=== PATIENT | female | born 1985 | race Caucasian/White ===

== ENCOUNTER 2024-11-25 12:52 | Outpatient (REF) | payer OTHER, SELFPAY ==
[2024-11-25 17:58] LABS: MANUAL DIFF FLAG NO
[2024-11-25 18:14] LABS: Appearance Urine Clear; Glucose Urine UA Negative (Negative); PH 7.0 (5.0-9.0); Specific Gravity - Urine <= 1.005 (1.005-1.025)
[2024-11-25 18:25] LABS: Hematocrit 39.9 % (37.0-47.0); Hemoglobin 13.9 g/dl (12.0-16.0); Imm Gran Abs Auto 0.01 X10*3/uL (0.00-0.03); Imm Gran Pct Auto 0.2 % (0.0-0.4); Lymphocytes Absolute Auto 1.8 X10*3/uL (1.2-4.9); Mean Corpuscular HGB Conc 34.8 g/dl (31.0-35.0); Mean Corpuscular Hemoglobin 31.3 pg (27.0-33.0); Mean Corpuscular Volume 89.9 fL (80.0-98.0); NRBC Abs Auto 0.000 X10*3/uL (0.0-0.012); NRBC Pct Auto 0.0 /100WBC (0.0-0.2); Platelet Count 300 X10*3/uL (160-400); Red Blood Count 4.44 X10*6/uL (4.20-5.50); White Blood Count 6.1 X10*3/uL (4.8-10.8)
[2024-11-25 18:42] LABS: Alanine Aminotransferase 19 U/L (0-31); Albumin Level 4.7 g/dL (3.5-5.0); Alkaline Phosphatase 42 U/L (39-117); Anion Gap 11 (12-20); Aspartate Amino Transferase 31 U/L (5-31); Blood Urea Nitrogen 8 mg/dL (9-16); Calcium 9.1 mg/dL (8.4-10.2); Carbon Dioxide 26 mmol/L (22-29); Chloride 106 mmol/L (96-108); Cholesterol 148 mg/dL (<200); Estimated Glomerular Filt Rate > 60; HDL Cholesterol 50 mg/dL (>40); Potassium 3.7 mmol/L (3.3-5.1); Sodium 139 mmol/L (135-145); Total Protein 6.9 g/dL (6.5-8.0); Triglycerides 66 mg/dL (<150)
[2024-11-25 19:01] LABS: Folate 6.4 ng/mL (> or = 4.0); Vitamin B12 416 pg/mL (200-900)
[2024-11-26 08:38] LABS: HBS Num1 604.42 mIU/mL (0-7.99); HBsAGNum1 0.31 S/CO (0.00-0.99); HIV Num 1 0.06 S/CO (0.00-0.99); Hepatitis B Surface Antigen Negative (Negative); ~HepC Num1 0.14 S/CO (0.00-0.79); ~Hepatitis B Surface Antibody REACTIVE (Nonreactive); ~Hepatitis C Antibody Nonreactive (Nonreactive)
[2024-11-30 12:44] LABS: VITAMIN D (1,25 OH) D3 43 pg/mL; Vit D (1,25-Dihydroxy) Total 43 pg/mL (18-72); Vitamin D (1,25 OH) D2 <8 pg/mL
== END 2024-11-25 12:53 | disposition home or self-care (01) ==
LOC: HO.HKASLDS 12:52
PROVIDERS: PCP Student in an Organized Health Care Education/Training Program; Visit Provider Student in an Organized Health Care Education/Training Program
DX: Z13.9 Encounter for screening, unspecified (principal); F41.9 Anxiety disorder, unspecified; F32.A Depression, unspecified; R03.0 Elevated blood-pressure reading, without diagnosis of hypertension; Z68.27 Body mass index [BMI] 27.0-27.9, adult
CPT/HCPCS: 36415; 80053; 80061; 81003; 82607; 82652; 82746; 83036; 85025; 86706; 86803; 87340; 87389

== ENCOUNTER 2024-11-25 12:52 | Outpatient (AMB) | payer OTHER, SELFPAY ==
--- NOTE | 2024-11-25 12:57 | A.OFFPC_ITS ---
Vital Signs 11/25/24 13:01 Height 5 ft 4.17 in Weight 162 lb BMI 27.7 BP 140/80 H Blood Pressure Location Rt brachial Position Sitting Respiration 16 Pulse 89 Pulse Source Pulse Oximeter Temp 97.8 F Temp Source Oral Pulse Oximetry (%) 98 Oxygen Delivery Method Room Air Intake Visit Reasons: establish care Supervisory Training Specialist Required: No Accompanied by: Self / Same As Patient Allergies No Known Allergies (No Known Allergies*) Allergy (Verified 11/25/24 12:58) Tobacco use date assessed: 11/25/24 Dental Screening Dental Screen Date: 11/25/24 Did you have a dental visit in the last 12 months?: Yes Did you have a dental problem in the last 6 months where you did not have access to dental care?: No Was dental information given to patient?: Patient has dentist HPI HPI Comments History of Present Illness Details History of Present Illness The patient is a 39-year-old female presenting for reestablishment of primary care and management of anxiety and depression. Generalized Anxiety Disorder: - The patient has experienced anxiety si nce her teenage years, with symptoms persisting despite intermittent therapy. - She reports feeling irritable and cons tantly worried about uncontrollable matters, impacting her daily life. - She has not experienced suicidal or ho micidal ideations. - She discontinued fluoxetine treatment prior to the COVID-19 pandemic due to changes in insurance and provider availability. Major Depressive Disorder: - The patient has a history of depressio n since her teenage years, managed initially with therapy and later with medication. - She was prescribed fluoxetine 15 mg, w hich she found beneficial until discontinuation. - She reports daily life being difficult , with persistent feelings of sadness and irritability. Review of Systems - Psychiatric: Reports anxiety and depre ssion. Denies suicidal or homicidal ideations. - Neurological: Denies headaches or dizz iness. - Cardiovascular: Denies chest pain or p alpitations. - Respiratory: Denies dyspnea or cough. - Gastrointestinal: Denies abdominal diane n or changes in bowel habits. - Genitourinary: Reports regular menstru ation, denies dysmenorrhea. 10-point ROS reviewed and negative excep t as noted in HPI Past Medical History - Generalized Anxiety Disorder, managed with fluoxetine in the past. - Major Depressive Disorder, managed wit h therapy and fluoxetine. Health Maintenance - Blood pressure monitoring due to eleva keely reading during the visit. - Comprehensive lab work ordered includi ng CBC, CMP, thyroid panel, lipid panel, and vitamin levels. - Behavioral health referral for ongoing mental health support. Physical Exam General: Well-appearing, in no acute distress. Vital signs: Blood pressure is a little elevated today. HEENT: Normocephalic, atraumatic. PERRLA, EOMI. Oropharynx clear, mucous membranes moist. TMs intact bilaterally. Neck: Supple, no lymphadenopathy, no thyromegaly, no JVD or carotid bruits. Cardiovascular: RRR, normal S1/S2, no murmurs, rubs, or gallops. Peripheral pulses 2+ and symmetric. No edema. Respiratory: Lungs clear to auscultation bilaterally, no wheezes, rales, or rhonchi. Normal effort. Abdomen: Soft, non-tender, non-distended. Normoactive bowel sounds. No hepatosplenomegaly, no masses. MSK: Full range of motion, no joint swelling or deformity. Normal gait. Skin: Warm, dry, intact. No rashes, lesions, or pallor. Neuro: Alert and oriented x3. Cranial nerves II-XII intact. Strength 5/5 throughout. Sensation intact. Reflexes 2+ symmetric. Normal coordination and gait. Psych: Appropriate mood and affect. Reports anxiety and depression, but no suicidal or homicidal ideations. Normal judgment and insight. Plan 1. Generalized Anxiety Disorder - Initiate fluoxetine 20 mg daily, with follow-up in two weeks to assess response and tolerability. - Behavioral health referral for additio nal support and therapy options. 2. Major Depressive Disorder - Restart fluoxetine 20 mg daily, with f ollow-up in two weeks to monitor effectiveness and side effects. - Comprehensive lab work to rule out any underlying conditions contributing to symptoms. Discussion Notes I discussed with the patient the plan to restart fluoxetine at 20 mg daily, emphasizing the importance of follow-up in two weeks to evaluate the medication's effectiveness and any side effects. We also talked about the need for comprehensive lab work to rule out any underlying conditions that might be contributing to her symptoms. I recommended a behavioral health referral to provide additional support and therapy options. The patient was informed about the expected time for fluoxetine to take effect and the importance of adherence to the medication regimen. Patient was informed and verbally consented to the use of an ambient scribe for clinic note documentation during this visit. Patient Instructions - Take fluoxetine 20 mg daily as prescri bed. - Schedule a follow-up appointment in tw o weeks to discuss how you are feeling. - Complete the lab work as ordered to ch piotr your overall health. - Expect a call from behavioral health f or additional support and therapy options. Total time spent caring for the patient today was 30 minutes. This includes time spent before the visit reviewing the chart, time spent documenting, and time spent performing a medically necessary evaluation, counseling on diagnoses, care coordination, ordering appropriate tests, ordering appropriate medications. [facility] Family History (Updated 11/25/24 @ 12:59 by Etienne Fontenot MA) Father No problems noted. Mother No problems noted. Social History (Updated 11/25/24 @ 13:04 by Eteinne Fontenot MA) Housing: House Alcohol intake: current Alcohol intake frequency: does not drink Patient Tobacco Use Status: Never used Tobacco service: No Current occupational status: employed Cognitive needs: No Hearing needs: No Vision needs: Yes (rx glasses) Questionnaire PHQ-9 Over the last 2 weeks, how often have you been bothered by any of the following problems? 1. Little interest or pleasure in doing things: more than half the days 2. Feeling down, depressed, or hopeless: more than half the days 3. Trouble falling or staying asleep, or sleeping too much: more than half the days 4. Feeling tired or having little energy: more than half the days 5. Poor appetite or overeating: more than half the days 6. Feeling bad about yourself - or that you are a failure or have let yourself or your family down: more than half the days 7. Trouble concentrating on things, such as reading the newspaper or watching television: more than half the days 8. Moving or speaking so slowly that other people could have noticed. Or the opposite - being so fidgety or restless that you have been moving around a lot more than usual: not at all 9. Thoughts that you would be better off or of hurting yourself in some way: several days Total score: 15 Source: Developed by Drs. Jonny Truong, Jennifer Pappas, Newton Lugo and colleagues, with an educational riley from [employer]. Thrive Questionnaire Date Thrive assessed: 11/25/24 I am a: Patient What is your living situation today?: I have a steady place to live Within the past 12 months, did the food you bought not last and you didn't have the money to get more?: Never true Within the past 12 months, did you worry whether your food would run out before you got money to buy more?: Never true Do you have trouble paying for medicines?: No Do you have trouble getting transportation to medical appointments?: No Do you have trouble paying your heating and electricity bill?: No Do you have trouble taking care of your child, family member or friend?: No Are you currently unemployed and looking for a job?: No Are you interested in more education?: No Please select the resources that you would like help with: None Currently or been in a relationship where the following occur: No concerns reported THRIVE Score: 0 AUDIT C Alcohol Use Questionnaire (AUDIT-C) 1. How often do you have a drink containing alcohol?: Never Total Score: 0 SAMI-7 AMB Questionnaire SAMI-7 Date SAMI - 7 assessed: 11/25/24 Feeling nervous, anxious, or on edge: 2 = More than half the days Not being able to stop or control worryin = More than half the days Worrying too much about different things: 2 = More than half the days Trouble relaxin = More than half the days Being so restless that it is hard to sit still: 1 = Several days Becoming easily annoyed or irritable: 2 = More than half the days Feeling afraid as if something awful might happen: 1 = Several days Total SAMI-7 score (0-4 normal; 5-9 mild; 10-14 moderate; 15-21 severe): 12 Source: Developed by Drs. Jonny Truong, Jennifer Pappas, Newton Lugo and colleagues, with an educational riley from [employer]. Physical exam (Primary Care) Vital Signs: Last Vital Signs Temp 97.8 F 11/25/24 13:01 Pulse 89 11/25/24 13:01 Resp 16 11/25/24 13:01 BP 140/80 H 11/25/24 13:01 Pulse Ox 98 11/25/24 13:01 Oxygen Delivery Method Room Air 11/25/24 13:01 BMI result Body Mass Index 27.7 Tobacco/Smoking Status: Tobacco use Status Tobacco use date assessed 11/25/24 11/25/24 13:06 Patient Tobacco Use Status Never used Tobacco 11/25/24 13:06 PHQ-9: PHQ-9 Score PHQ-9: Total score 15 11/25/24 13:06 Thrive Assessment: Date of Thrive Assessment Date Thrive assessed 11/25/24 11/25/24 13:06 Currently or been in a relationship where the following occur: No concerns reported Coding Level of Care Code New Pt Level 4 (43963) Diagnoses Anxiety F41.9 Depression F32.A Overweight (BMI 25.0-29.9) E66.3 Elevated blood pressure reading R03.0 Assessment & Plan Assessment & Plan (1) Anxiety: Code(s): F41.9 - Anxiety disorder, unspecified (2) Depression: Code(s): F32.A - Depression, unspecified (3) Overweight (BMI 25.0-29.9): Code(s): E66.3 - Overweight (4) Elevated blood pressure reading: Code(s): R03.0 - Elevated blood-pressure reading, without diagnosis of hypertension Plan Orders: Orders Comprehensive Met. Panel Today Z13.9 - Encounter for screening, unspecified HIV Ab/Ag Today Z13.9 - Encounter for screening, unspecified Lipid Panel Today Z13.9 - Encounter for screening, unspecified UA CC w/rflx Micro + Cult Today Z13.9 - Encounter for screening, unspecified Complete Blood Count Auto Diff Today Z13.9 - Encounter for screening, unspecified Hemoglobin A1c Today Z13.9 - Encounter for screening, unspecified Hepatitis B Surface Antibody Today Z13.9 - Encounter for screening, unspecified Hepatitis B Surface Antigen Today Z13.9 - Encounter for screening, unspecified Hepatitis C Antibody Today Z13.9 - Encounter for screening, unspecified Vitamin B12 and Folate Today Z13.9 - Encounter for screening, unspecified Vitamin D 1,25 dihydroxy Today Z13.9 - Encounter for screening, unspecified Referrals Behavioral Health Referral F32.A - Depression, unspecified, F41.9 - Anxiety disorder, unspecified Medications: New fluoxetine 20 mg (2 x 10 mg) PO DAILY 30 tabs 0RF F41.8 - Other specified an xiety disorders
[2024-11-25 13:01] VITALS: BP 140/80; PULSE 89; RESP 16; TEMP 36.6; O2SAT 98; BMI 27.7
--- OUTSIDE RECORDS SUMMARY | 2024-11-25 15:46 | XMS_ITS | Encounter Summary ---
Author Organization [facility] Address [address] [place] [phone] Phone Care Team Providers Care Commercial Illustrator Name Role Phone Unavailable Primary Care Provider Unavailabl e Encounter Details Date Type Department Care Team (Late st Contact Info) Description 10/05/2016 Conversion Encounter [facility] - [address] [address] Social History Tobacco Use Types Packs/Day Years Used Date Smoking Tobacco: Never Assessed Comments Unknown Sex and Gender Information Value Date Recorded Sex Assigned at Not on file Legal Sex Female 4:14 PM EDT Gender Identity Not on file Sexual Orientation Not on file documented as of this encounter Plan of Treatment Not on file documented as of this encounter Visit Diagnoses Not on filedocumented in this encounter
--- OUTSIDE RECORDS SUMMARY | 2024-11-25 15:46 | XMS_ITS | Clinical Summary ---
Author Organization [facility] Address [address] [place] [phone] Phone Care Team Providers Care Cloth Desizing Range Tender Name Role Phone Unavailable Primary Care Provider Unavailabl e Immunizations Immunization Administration Dates Next Due DTP 06/18/1998, 8,01/18/1997,11/18,09/19/1991 Hep B, ped/adol 10/19/1998,05/04/1998,03/23/1998 Hib (HbOC) 06/18/1998 IPV 06/18/1998, 7,11/18/1996,09/18 MMR 03/23/1998,03/21/1998 Meningococcal Conj (Menactra) MCV4P 10/11/2004 Td (adult) (Tenivac), 5 Lf t etanus toxoid, PF, adsorbed 03/23/1998 Family History Relation Name Status Comments Brother 1 Alive Brother: Alive and well, Alive and well Brother 2 Alive Brother: Alive and well, Alive and well Father Alive Father: Alive a nd well Maternal Grandmother Materna l grandmother: Diabetes mellitus, Mother Alive Mother: Alive a nd well Social History Tobacco Use Types Packs/Day Years Used Date Smoking Tobacco: Never Assessed Comments Unknown Sex and Gender Information Value Date Recorded Sex Assigned at Not on file Legal Sex Female 4:14 PM EDT Gender Identity Not on file Sexual Orientation Not on file Plan of Treatment Health Maintenance Due Date Last Done Comments Varicella Vaccines (1 of 2 - 13+ 2-dose series) 08/16/1999 DTaP,Tdap,and Td Vaccines (5 - Tdap) 06/18/2008 06/18/1998, 03/23/1998, 03/21/1997, Additional history exists HPV Vaccines (1 - 3-dose SCDM series) 2013 Influenza Vaccines (#1) 2024 COVID-19 Vaccine (1 - 2025-26 season) 2024 MMR Vaccines Completed 03/23/1998, 03/21/1998 HIB Vaccines Aged Out 06/18/1998 No longer eligi ble based on patient's age to complete this topic IPV Vaccines Completed 06/18/1998, 12/22, 11/18/1996, Additional history exists Hepatitis B Vaccines Completed 10/19/1998, 05/04/1998, 03/23/1998 Meningococcal Vaccine Completed 10/11/2004 Hepatitis A Vaccines Aged Out No long er eligible based on patient's age to complete this topic Men B Vaccine Aged Out No longer elig ible based on patient's age to complete this topic Pneumococcal Vaccine Aged Out No long er eligible based on patient's age to complete this topic
== END 2024-11-25 13:23 | disposition home or self-care (01) ==
LOC: HO.HMCFMS 12:53
PROVIDERS: PCP Student in an Organized Health Care Education/Training Program; Visit Provider Student in an Organized Health Care Education/Training Program
DX: F41.9 Anxiety disorder, unspecified (principal); F32.A Depression, unspecified; E66.3 Overweight; R03.0 Elevated blood-pressure reading, without diagnosis of hypertension

== ENCOUNTER 2024-12-10 13:15 | Outpatient (AMB) | payer OTHER, SELFPAY ==
--- NOTE | 2024-12-10 13:12 | A.OFFPC_ITS ---
Vital Signs 12/10/24 13:13 Height 5 ft 4.17 in Weight 159 lb 4 oz BMI 27.2 BP 156/86 H Blood Pressure Location Lt brachial Position Sitting Respiration 16 Pulse 72 Pulse Source Pulse Oximeter Temp 98.2 F Temp Source Oral Pulse Oximetry (%) 99 Oxygen Delivery Method Room Air Intake Visit Reasons: 2 week follow up [employer] Developer Required: No Accompanied by: Self / Same As Patient Allergies No Known Allergies (No Known Allergies*) Allergy (Verified 12/10/24 13:13) Tobacco use date assessed: 12/10/24 Dental Screening Dental Screen Date: 12/10/24 Did you have a dental visit in the last 12 months?: Yes Did you have a dental problem in the last 6 months where you did not have access to dental care?: No Was dental information given to patient?: Patient has dentist HPI HPI Comments History of Present Illness Details Consent Patient was informed and verbally consented to the use of an ambient scribe for clinic note documentation during this visit. History of Present Illness The patient is a 39-year-old female presenting for follow-up on Major Depressive Disorder and labs results from initial encounter Major Depressive Disorder: The patient started fluoxetine approximately two weeks ago and reports not yet experiencing significant improvement in symptoms, which is expected as the medication typically takes four to six weeks for full effect. She has also begun therapy sessions, having met with a therapist last week and planning another session tomorrow, indicating a proactive approach to managing her condition. Routine Health Maintenance: The patient's recent laboratory results indicate normal white blood cell count, red blood cell count, hemoglobin, hematocrit, and platelet levels, with no signs of anemia or infection. Electrolyte levels, including sodium and potassium, are within normal ranges, and renal function is reported as excellent. Additional tests show normal hemoglobin A1c, liver function, triglycerides, cholesterol levels, vitamin B12, vitamin D, and folate, with negative results for Hepatitis B, Hepatitis C, and HIV. Medications: - Fluoxetine: For management of Major De pressive Disorder Social History: - Mental Health: Engaged in therapy sess ions for mental health support Diagnostic Results: - Labs: Normal white blood cell count, r ed blood cell count, hemoglobin, hematocrit, and platelet levels; normal sodium and potassium levels; excellent renal function - Tests: Normal hemoglobin A1c, liver fu nction, triglycerides, cholesterol levels, vitamin B12, vitamin D, and folate; negative for Hepatitis B, Hepatitis C, and HIV Review of Systems 10-point ROS reviewed and negative excep t as noted in HPI Past Medical History Health Maintenance - Routine blood work and screenings cond ucted with normal results Physical Exam General: Well-appearing, in no acute distress. Vital signs: Within normal limits. HEENT: Normocephalic, atraumatic. PERRLA, EOMI. Conjunctiva clear, sclera anicteric. Oropharynx clear, mucous membranes moist. TMs intact bilaterally. Neck: Supple, no lymphadenopathy, no thyromegaly, no JVD or carotid bruits. Cardiovascular: RRR, normal S1/S2, no murmurs, rubs, or gallops. Peripheral pulses 2+ and symmetric. No edema. Respiratory: Lungs clear to auscultation bilaterally, no wheezes, rales, or rhonchi. Normal effort. Abdomen: Soft, non-tender, non-distended. Normoactive bowel sounds. No h epatosplenomegaly, no masses. MSK: Full range of motion, no joint swelling or deformity. Normal gait. Skin: Warm, dry, intact. No rashes, lesions, or pallor. Neuro: Alert and oriented x3. Cranial nerves II-XII intact. Strength 5/5 throughout. Sensation intact. Reflexes 2+ symmetric. Normal coordination and gait. Psych: Appropriate mood and affect. Normal judgment and insight. Patient is currently on fluoxetine and has started therapy sessions. Mood is improving, and patient reports feeling good overall. Plan 1. Major Depressive Disorder - Continue fluoxetine and monitor for im provement over the next 4-6 weeks - Continue therapy sessions to support [facility] 2. Routine Health Maintenance - Review lab results and maintain [facility] t health status - Follow up in one month for reassessmen t Discussion Notes I discussed with the patient the expected timeline for fluoxetine to take full effect, emphasizing the importance of continuing the medication and therapy sess ions. We reviewed her lab results, which were all within normal limits, and agreed on a follow-up in one month to reassess her condition. Patient Instructions - Continue taking fluoxetine as prescrib ed - Attend scheduled therapy sessions - Review lab results on the patient port al - Follow up in one month for reassessmen t Medical Decision Making The decision to continue fluoxetine was based on the typical timeline for antidepressants to show efficacy, with the expectation of improvement in symptoms over the next few weeks. Therapy sessions are recommended to provide additional support for managing Major Depressive Disorder. Routine lab work confirmed the patient's overall good health, allowing for a focus on mental health management. Total time spent caring for the patient today was 30 minutes. This includes time spent before the visit reviewing the chart, time spent documenting, and time spent reviewing laboratory results, diagnostic imaging, medications, performing a medically necessary evaluation, counseling on diagnoses, care coordination, ordering appropriate tests, ordering appropriate medications. [facility] Family History Father No problems noted. Mother No problems noted. Social History Housing: House Alcohol intake: current Alcohol intake frequency: does not drink Patient Tobacco Use Status: Never used Tobacco service: No Current occupational status: employed Cognitive needs: No Hearing needs: No Vision needs: Yes (rx glasses) Questionnaire Thrive Questionnaire Date Thrive assessed: 12/10/24 I am a: Patient What is your living situation today?: I have a steady place to live Within the past 12 months, did the food you bought not last and you didn't have the money to get more?: Never true Within the past 12 months, did you worry whether your food would run out before you got money to buy more?: Never true Do you have trouble paying for medicines?: No Do you have trouble getting transportation to medical appointments?: No Do you have trouble paying your heating and electricity bill?: No Do you have trouble taking care of your child, family member or friend?: No Do you have trouble with day-to-day activities such as bathing, preparing meals, shopping, managing finances, etc.?: No Are you currently unemployed and looking for a job?: No Are you interested in more education?: No Please select the resources that you would like help with: None Currently or been in a relationship where the following occur: No concerns reported THRIVE Score: 0 AUDIT C Alcohol Use Questionnaire (AUDIT-C) 3. How often do you have six or more drinks on one occasion?: Never Total Score: 0 SAMI-7 AMB Questionnaire SAMI-7 Date SAMI - 7 assessed: 12/10/24 Source: Developed by Drs. Jonny Truong, Jennifer B.Newton Morales and colleagues, with an educational riley from [employer]. Physical exam (Primary Care) Vital Signs: Last Vital Signs Temp 98.2 F 12/10/24 13:13 Pulse 72 12/10/24 13:13 Resp 16 12/10/24 13:13 BP 156/86 H 12/10/24 13:13 Pulse Ox 99 12/10/24 13:13 Oxygen Delivery Method Room Air 12/10/24 13:13 BMI result Body Mass Index 27.2 Tobacco/Smoking Status: Tobacco use Status Tobacco use date assessed 12/10/24 12/10/24 13:18 Patient Tobacco Use Status Never used Tobacco 12/10/24 13:18 Thrive Assessment: Date of Thrive Assessment Date Thrive assessed 12/10/24 12/10/24 13:18 Currently or been in a relationship where the following occur: No concerns reported Coding Level of Care Code Est Pt Level 3 (34863) Diagnoses Depression F32.A Elevated blood pressure reading R03.0 Anxiety F41.9 Overweight with body mass index (BMI) 25.0-29.9 E66.3 Assessment & Plan Assessment & Plan (1) Depression: Code(s): F32.A - Depression, unspecified (2) Elevated blood pressure reading: Code(s): R03.0 - Elevated blood-pressure reading, without diagnosis of hypertension (3) Anxiety: Code(s): F41.9 - Anxiety disorder, unspecified (4) Overweight with body mass index (BMI) 25.0-29.9: Code(s): E66.3 - Overweight Plan Medications: Refilled fluoxetine 20 mg (2 x 10 mg) PO DAILY 180 tabs 0RF F41.8 - Other specified anxiety disorders
[2024-12-10 13:13] VITALS: BP 156/86; PULSE 72; RESP 16; TEMP 36.8; O2SAT 99; BMI 27.2
--- OUTSIDE RECORDS SUMMARY | 2024-12-10 18:41 | XMS_ITS | Encounter Summary ---
Author Organization [facility] Address [address] [place] [phone] Phone Care Team Providers Care Receiver Dispatcher Name Role Phone Unavailable Primary Care Provider Unavailabl e Encounter Details Date Type Department Care Team (Late st Contact Info) Description 10/05/2016 Conversion Encounter [facility] - [address] [address] Social History Tobacco Use Types Packs/Day Years [...]
--- OUTSIDE RECORDS SUMMARY | 2024-12-10 18:42 | XMS_ITS | Clinical Summary ---
Author Organization [facility] Address [address] [place] [phone] Phone Care Team Providers Care Quarry Extraction Worker Name Role Phone Unavailable Primary Care Provider [...]
== END 2024-12-10 13:48 | disposition home or self-care (01) ==
LOC: HO.HMCFMS 13:16
PROVIDERS: PCP Student in an Organized Health Care Education/Training Program; Visit Provider Student in an Organized Health Care Education/Training Program
DX: F32.A Depression, unspecified (principal); R03.0 Elevated blood-pressure reading, without diagnosis of hypertension; F41.9 Anxiety disorder, unspecified; E66.3 Overweight

== ENCOUNTER 2025-01-21 09:49 | Outpatient (AMB) | payer OTHER, SELFPAY ==
--- NOTE | 2025-01-21 09:55 | MHC.PC.OV ---
Vital Signs 01/21/25 09:59 Height 5 ft 4.17 in Weight 155 lb 4 oz BMI 26.5 BP 128/76 Blood Pressure Location Lt brachial Position Sitting Respiration 18 Pulse 75 Pulse Source Pulse Oximeter Temp 98 F Temp Source Oral Pulse Oximetry (%) 99 Oxygen Delivery Method Room Air Intake Visit Reasons: 1 mo f/u Intake Note: follow up Heel Padder Required: No Accompanied by: Self / Same As Patient Allergies No Known Allergies (No Known Allergies*) Allergy (Verified 01/21/25 09:58) Medication List - Last Reconciled 01/21/25 by Carlos Abreu MD fluoxetine 40 mg PO DAILY Tobacco use date assessed: 12/10/24 Dental Screening Dental Screen Date: 12/10/24 HPI HPI Comments History of Present Illness Details History of Present Illness The patient is a 39-year-old individual presenting for a follow-up visit for medication management of a mood disorder. Mood Disorder: The patient has been on fluoxetine for over a month and reports that the medication is working, noting a more positive outlook. However, the patient feels that the full therapeutic effect has not been reached and requested to increase the dose. Mental Health Counseling: The patient has a history of trying therapy several times and recently attended two virtual sessions with a therapist named Tanika. The patient found it difficult to find time for weekly sessions and felt the therapist was not a good fit, citing the therapist's anti-medication stance and focus on breath work. The patient remains open to counseling but desires a different provider. Medications: - Fluoxetine for mood disorder, current dose not specified, but has been on it for over a month. 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 - Attended two therapy sessions via Zoom. Diagnostic Results: - All recent laboratory results are within normal limits. - CBC: White blood cells, red blood cells, hemoglobin, and platelets are normal. - Comprehensive Metabolic Panel: Sodium, potassium, kidney function, and liver function are normal. - Glucose: Within normal range; patient is not prediabetic or diabetic. - Lipid Panel: Triglycerides, total cholesterol, LDL, and HDL are within great ranges. - Vitamins: Vitamin B12, Vitamin D, and folate are good. - Urinalysis: Results are normal. - Infectious Disease Screen: Negative for Hepatitis B, Hepatitis C, and HIV. Past Medical History - History of mood disorder currently treated with fluoxetine. - The patient has attempted therapy several times in the past. Health Maintenance - Comprehensive lab work including CBC, CMP, lipids, vitamins, and infectious disease screening was recently completed and reviewed; all results were within normal limits. - Discussed importance of finding a suitable therapist for mental health counseling and provided a new referral. [facility] Family History Father No problems noted. Mother No problems noted. Social History (Updated 01/21/25 @ 09:59 by Yuan Hamm CMA) Housing: House Alcohol intake: current Alcohol intake frequency: does not drink Patient Tobacco Use Status: Never used Tobacco e-Cigarette/Vaping Use: Never Used service: No Current occupational status: employed Cognitive needs: No Hearing needs: No Vision needs: Yes (rx glasses) Questionnaire PHQ-9 Over the last 2 weeks, how often have you been bothered by any of the following problems? 1. Little interest or pleasure in doing things: more than half the days 2. Feeling down, depressed, or hopeless: more than half the days 3. Trouble falling or staying asleep, or sleeping too much: more than half the days 4. Feeling tired or having little energy: more than half the days 5. Poor appetite or overeating: more than half the days 6. Feeling bad about yourself - or that you are a failure or have let yourself or your family down: more than half the days 7. Trouble concentrating on things, such as reading the newspaper or watching television: more than half the days 8. Moving or speaking so slowly that other people could have noticed. Or the opposite - being so fidgety or restless that you have been moving around a lot more than usual: not at all 9. Thoughts that you would be better off or of hurting yourself in some way: several days Total score: 15 Depression Screening Interpretation: Positive Depression Screening Done: Yes 30376 - PHQ-9 Billing: Yes Source: Developed by Drs. Jonny Truong, Jennifer Pappas, Newton Lugo and colleagues, with an educational riley from [employer]. Thrive Questionnaire Date Thrive assessed: 01/21/25 I am a: Patient What is your living situation today?: I have a steady place to live Within the past 12 months, did the food you bought not last and you didn't have the money to get more?: Never true Within the past 12 months, did you worry whether your food would run out before you got money to buy more?: Never true Do you have trouble paying for medicines?: No Do you have trouble getting transportation to medical appointments?: No Do you have trouble paying your heating and electricity bill?: No Do you have trouble taking care of your child, family member or friend?: No Do you have trouble with day-to-day activities such as bathing, preparing meals, shopping, managing finances, etc.?: No Are you currently unemployed and looking for a job?: No Are you interested in more education?: No Please select the resources that you would like help with: None Currently or been in a relationship where the following occur: No concerns reported THRIVE Score: 0 AUDIT C Alcohol Use Questionnaire (AUDIT-C) 3. How often do you have six or more drinks on one occasion?: Never Total Score: 0 SAMI-7 AMB Questionnaire SAMI-7 Date SAMI - 7 assessed: 01/21/25 Source: Developed by Drs. Jonny Truong, Jennifer Pappas, Newton Lugo and colleagues, with an educational riley from [employer]. SAMI-7 Assessment Billing SAMI-7 Assessment Tool: SAMI-7 Assessment 27648 Review of Systems Narrative Review of Systems - Psychiatric: Reports improved and more positive mood since starting fluoxetine but feels symptoms are not fully resolved. - Denies significant trauma. - Constitutional: Reports feeling well. 10-point ROS reviewed and negative except as noted in HPI Physical exam (Primary Care) Vital Signs: Last Vital Signs Temp 98 F 01/21/25 09:59 Pulse 75 01/21/25 09:59 Resp 18 01/21/25 09:59 BP 128/76 01/21/25 09:59 Pulse Ox 99 01/21/25 09:59 Oxygen Delivery Method Room Air 01/21/25 09:59 BMI result Body Mass Index 26.5 Tobacco/Smoking Status: Tobacco use Status Tobacco use date assessed 12/10/24 01/21/25 10:03 Patient Tobacco Use Status Never used Tobacco 01/21/25 10:03 e-Cigarette/Vaping Use Never Used 01/21/25 10:03 PHQ-9: PHQ-9 Score PHQ-9: Total score 15 01/21/25 10:03 Depression Screening Interpretation: Positive Thrive Assessment: Date of Thrive Assessment Date Thrive assessed 01/21/25 01/21/25 10:03 Currently or been in a relationship where the following occur: No concerns reported Narrative Physical Exam General: Well-appearing, in no acute distress. Vital signs: Within normal limits. HEENT: Normocephalic, atraumatic. PERRLA, EOMI. Conjunctiva clear, sclera anicteric. Oropharynx clear, mucous membranes moist. TMs intact bilaterally. Neck: Supple, no lymphadenopathy, no thyromegaly, no JVD or carotid bruits. Cardiovascular: RRR, normal S1/S2, no murmurs, rubs, or gallops. Peripheral pulses 2+ and symmetric. No edema. Respiratory: Lungs clear to auscultation bilaterally, no wheezes, rales, or rhonchi. Normal effort. Abdomen: Soft, non-tender, non-distended. Normoactive bowel sounds. No hepatosplenomegaly, no masses. MSK: Full range of motion, no joint swelling or deformity. Normal gait. Skin: Warm, dry, intact. No rashes, lesions, or pallor. Neuro: Alert and oriented x3. Cranial nerves II-XII intact. Strength 5/5 throughout. Sensation intact. Reflexes 2+ symmetric. Normal coordination and gait. Psych: Appropriate mood and affect. Normal judgment and insight. Patient reports improvement with fluoxetine but desires dose increase for further improvement. Engaged in therapy sessions via Zoom, exploring different therapeutic options. Coding Level of Care Code Est Pt Level 3 (73667) Diagnoses Anxiety F41.9 Depression F32.A Additional Codes SAMI-7 Assessment Billing - SAMI-7 Assessment Tool: SAMI-7 Assessment 76329 ([id number]) PHQ-9 - 36422 - PHQ-9 Billing: Yes ([id number]) Assessment & Plan Assessment & Plan (1) Anxiety: Code(s): F41.9 - Anxiety disorder, unspecified (2) Depression: Code(s): F32.A - Depression, unspecified Plan Consent Patient was informed and verbally consented to the use of an ambient scribe for clinic note documentation during this visit. Plan 1. Mood Disorder - The patient reports a partial response to fluoxetine and wishes to increase the dose for better symptom control. - Plan is to increase the fluoxetine dose to 40 mg daily. - Follow-up scheduled in one month to assess the patient's response to the dose titration. 2. Mental Health Counseling - The patient expressed dissatisfaction with the previous therapist due to scheduling challenges and a perceived anti-medication bias. - A new referral was provided for [facility], which offers virtual therapy sessions. - The patient was encouraged to contact the new practice when ready. Discussion Notes I reviewed the patient's recent lab work, and all results were within normal limits. We discussed the patient's treatment with fluoxetine; the patient reports it is helping but feels there is room for improvement and requested a dose increase. I explained that fine-tuning the dose of psychiatric medication is a common process to find what works best for the individual. We agreed to increase the fluoxetine to 40 mg daily with a plan to follow up in one month. We also discussed psychotherapy, and the patient felt the last therapist was not a good fit. I provided a referral to [facility], which offers virtual sessions, as an alternative. Patient Instructions - Increase your dose of fluoxetine to 40 mg once a day. - Please schedule a follow-up appointment in one month to review how you are feeling on the new dose. - You were given the phone number for [facility] for therapy. - You can call them to set up an appointment when you feel ready. Medical Decision Making This 39-year-old individual presents for a follow-up of a mood disorder. The patient reports a partial positive response to fluoxetine but endorses residual symptoms, leading to a request for a dose increase. Given the good tolerability and incomplete efficacy, a dose titration is clinically indicated to optimize treatment. The decision was made to increase fluoxetine to 40 mg daily, a standard next step, with a plan to re-evaluate in one month. Additionally, the patient's challenges with finding a suitable therapist were addressed by providing a new referral to a practice offering telehealth, which may better fit the patient's needs and preferences after a poor experience with a previous provider. Recent comprehensive labs were reviewed and found to be unremarkable, confirming no metabolic or other organic contributors to the patient's presentation. Total Time Statement 20 min Total time spent caring for the patient today includes pre-visit chart review, documentation, review of laboratory and diagnostic imaging results, medication reconciliation, medically necessary evaluation, counseling on diagnoses, care coordination, ordering appropriate tests and medications, review of tests performed by other providers, reporting test results to the patient, and communication with other healthcare providers. Medications: New fluoxetine 40 mg PO DAILY 30 caps 0RF Discontinued fluoxetine Discontinued Reason: Doctor's Order 20 mg (2 x 10 mg) PO DAILY 180 tabs 0RF F41.8 - Other specified anxiety disorders
[2025-01-21 09:59] VITALS: BP 128/76; PULSE 75; RESP 18; TEMP 36.6; O2SAT 99; BMI 26.5
--- OUTSIDE RECORDS SUMMARY | 2025-01-21 11:01 | XMS_ITS | Encounter Summary ---
Author Organization [facility] Address [address] [place] [phone] Phone Care Team Providers Care Registered Nurse Teacher Name Role Phone Unavailable Primary Care Provider Unavailabl e Encounter Details Date Type Department Care Team (Late st Contact Info) Description 10/05/2016 Conversion Encounter [facility] - [address] [id number] Social History Tobacco Use Types Packs/Day Years [...]
--- OUTSIDE RECORDS SUMMARY | 2025-01-21 11:01 | XMS_ITS | Clinical Summary ---
Author Organization [facility] Address [address] [place] [phone] Phone Care Team Providers Care Media Services Specialist Name Role Phone Unavailable Primary Care Provider [...]
== END 2025-01-21 10:14 | disposition home or self-care (01) ==
LOC: HO.HMCFMS 09:50
PROVIDERS: PCP Student in an Organized Health Care Education/Training Program; Visit Provider Student in an Organized Health Care Education/Training Program
DX: F41.9 Anxiety disorder, unspecified (principal); F32.A Depression, unspecified

== ENCOUNTER → 2025-01-21 09:49 | Outpatient (BNVA) | payer OTHER, SELFPAY | PROVIDERS: PCP Internal Medicine; Visit Provider Student in an Organized Health Care Education/Training Program | DX: F41.9 Anxiety disorder, unspecified (principal); F32.A Depression, unspecified; Z13.31 Encounter for screening for depression | CPT/HCPCS: 96127 ==